=== PATIENT | female | born 1980 | race Caucasian/White ===

== ENCOUNTER 2018-04-26 05:26 | Inpatient (IN) | payer OTHER ==
[2018-04-26] MEDS ORDERED: CEFAZOLIN 2 GM/50 ML (PMX) 50 ML IVPB ×2 (05:45→06:00)
[2018-04-26] MEDS ORDERED: OXYTOCIN 30 UNITS/LR 500 ML IV ×2 (06:00→11:00)
[2018-04-26] MEDS ORDERED: MISOPROSTOL 200 MCG TAB PR ×2 (06:00→11:00)
[2018-04-26] MEDS ORDERED: CARBOPROST 250 MCG INJ IM ×2 (06:00→11:00)
[2018-04-26] MEDS: LACTATED RINGER'S 1,000 ML IV ×2 (06:00→06:57)
[2018-04-26] MEDS ORDERED: METHYLERGONOVINE 0.2 MG INJ IM ×2 (06:00→11:00)
[2018-04-26 06:16] LABS: ADD MAN DIFF? NO
[2018-04-26 06:21] LABS: BASOPHILS % 0.2 % (0.0-2.0); EOSINOPHILS # 0.2 10^3/ul (0.0-0.5); EOSINOPHILS % 1.2 % (0.0-7.0); HEMATOCRIT 39.3 % (37.0-47.0); HEMOGLOBIN 13.3 g/dl (12.0-16.0); LYMPHOCYTES # 2.7 10^3/ul (0.8-2.9); LYMPHOCYTES % 21.3 % (15.0-51.0); MEAN CORPUSCULAR HEMOGLOBIN 29.6 pg (29.0-33.0); MEAN CORPUSCULAR HGB CONC 33.8 g/dl (32.0-37.0); MEAN CORPUSCULAR VOLUME 87.3 fl (82.0-101.0); MEAN PLATELET VOLUME 10.1 fl (7.4-10.4); MONOCYTE # 0.6 10^3/ul (0.3-0.9); MONOCYTES % 4.4 % (0.0-11.0); NEUTROPHIL # 9.3 10^3/ul (1.6-7.5); NEUTROPHILS % 72.4 % (39.0-77.0); PLATELET COUNT 315 10^3/UL (140-415); RED CELL DISTRIBUTION WIDTH 14.6 % (11.5-14.5)
[2018-04-26 06:21] LABS: WHITE BLOOD COUNT 12.9 10^3/ul (4.8-10.8)
[2018-04-26 06:39] LABS: INR 0.94; PROTIME 12.7 Sec (11.9-14.9)
[2018-04-26 06:40] LABS: PARTIAL THROMBOPLASTIN TIME 25.7 Sec (23.0-35.0)
[2018-04-26] MEDS ORDERED: OXYTOCIN 30 UNITS/LR 500 ML BAG IV (07:00)
[2018-04-26] MEDS ORDERED: EPHEDrine SULFATE 50 MG/5 ML SYG (07:00)
[2018-04-26 07:09] LABS: HEPATITIS B SURFACE ANTIGEN NEGATIVE (NEGATIVE)
[2018-04-26] MEDS ORDERED: CITRIC ACID/NA CITRATE 30 ML CUP (08:22)
[2018-04-26] MEDS: ONDANSETRON 4 MG INJ IV (08:25)
[2018-04-26] MEDS: CITRIC ACID/NA CITRATE 30 ML CUP PO (08:25)
[2018-04-26] MEDS ORDERED: PHENYLephrine (100 MCG/ML) 10ML SYG ×3 (08:35→09:32)
[2018-04-26] MEDS ORDERED: morphine SULFATE/PF (10 MG/10 ML) INJ (08:35)
[2018-04-26] MEDS ORDERED: OXYTOCIN 10 UNIT INJ (08:35)
[2018-04-26] MEDS ORDERED: BUPIVACAINE 0.75%/DEXT (SPINAL) 2 ML INJ (08:38)
[2018-04-26] MEDS ORDERED: METOCLOPRAMIDE 10 MG INJ (09:21)
[2018-04-26] MEDS ORDERED: DEXAMETHASONE 4 MG/ML 1 ML INJ (09:22)
[2018-04-26] MEDS ORDERED: KETOROLAC 30 MG INJ (09:22)
[2018-04-26] MEDS ORDERED: METOCLOPRAMIDE 10 MG INJ IV (09:30)
[2018-04-26] MEDS ORDERED: ALBUMIN HUMAN 5% 250 ML IV (09:30)
[2018-04-26] MEDS ORDERED: morphine 2 MG INJ IV ×2 (09:30)
[2018-04-26] MEDS ORDERED: ACETAMINOPHEN 500 MG TAB PO (09:30)
[2018-04-26] MEDS ORDERED: MEPERIDINE 25 MG INJ IV (09:30)
[2018-04-26] MEDS ORDERED: NALBUPHINE HCL (10 MG/1 ML) INJ IV (09:30)
[2018-04-26] MEDS ORDERED: NALOXONE (0.4 MG/ML) INJ IV (09:30)
[2018-04-26] MEDS ORDERED: HYDROCODONE/APAP (5/325) TAB PO (09:30)
[2018-04-26] MEDS ORDERED: FENTAnyl 50 MCG/ML VIAL IV ×2 (09:30)
[2018-04-26] MEDS ORDERED: ONDANSETRON 4 MG INJ IV ×2 (09:30)
[2018-04-26] MEDS ORDERED: HYDROmorphONE 1 MG/5 ML IV SYRINGE IV ×2 (09:30)
[2018-04-26] MEDS ORDERED: LABETALOL HCL 20MG INJ IV (09:30)
[2018-04-26] MEDS ORDERED: DIPHENHYDRAMINE 50 MG INJ IV ×2 (09:30)
[2018-04-26] MEDS ORDERED: EPHEDrine SULFATE 50 MG/5 ML SYG IV (09:30)
[2018-04-26] MEDS ORDERED: HYDROmorphONE 0.5 MG/0.5 ML SYG IV (09:30)
[2018-04-26] MEDS ORDERED: MAGNESIUM HYDROXIDE 30ML CUP PO (11:00)
[2018-04-26] MEDS ORDERED: METHYLERGONOVINE 0.2 MG TAB PO (11:00)
[2018-04-26] MEDS ORDERED: LANOLIN HPA 1 PKT TOP (11:00)
[2018-04-26] MEDS: OXYTOCIN 30 UNITS/LR 500 ML IV ×2 (11:31→14:02)
[2018-04-26] MEDS: KETOROLAC 30 MG INJ IV (12:27)
[2018-04-26] MEDS: IBUPROFEN 800 MG TAB PO ×2 (14:00→22:00)
[2018-04-26 15:30] LABS: RAPID PLASMA REAGIN NONREACTIVE (NR)
[2018-04-26] MEDS: ENOXAPARIN 40 MG/0.4 ML SYG SC (18:16)
[2018-04-26] MEDS: DEXTROSE 5%-LR 1,000 ML IV ×2 (19:24→22:44)
[2018-04-26] MEDS: SENNA/DOCUSATE NA (8.6MG/50MG) TAB PO (21:37)
[2018-04-26] MEDS: HYDROmorphONE 0.5 MG/0.5 ML SYG IV (22:44)
[2018-04-27] MEDS: IBUPROFEN 800 MG TAB PO ×3 (06:00→21:57)
[2018-04-27] MEDS: DEXTROSE 5%-LR 1,000 ML IV ×3 (06:40→18:35)
[2018-04-27 06:45] LABS: ADD MAN DIFF? NO
[2018-04-27 06:50] LABS: BASOPHILS % 0.1 % (0.0-2.0); EOSINOPHILS # 0.1 10^3/ul (0.0-0.5); EOSINOPHILS % 0.8 % (0.0-7.0); HEMATOCRIT 33.5 % (37.0-47.0); LYMPHOCYTES % 22.9 % (15.0-51.0); MEAN CORPUSCULAR HEMOGLOBIN 29.3 pg (29.0-33.0); MEAN CORPUSCULAR HGB CONC 32.8 g/dl (32.0-37.0); MEAN CORPUSCULAR VOLUME 89.3 fl (82.0-101.0); MEAN PLATELET VOLUME 9.7 fl (7.4-10.4); MONOCYTE # 0.7 10^3/ul (0.3-0.9); MONOCYTES % 5.6 % (0.0-11.0); NEUTROPHIL # 9.1 10^3/ul (1.6-7.5); NEUTROPHILS % 70.1 % (39.0-77.0); PLATELET COUNT 262 10^3/UL (140-415); RED BLOOD COUNT 3.75 10^6/ul (4.20-5.40); RED CELL DISTRIBUTION WIDTH 14.2 % (11.5-14.5)
[2018-04-27] MEDS: SENNA/DOCUSATE NA (8.6MG/50MG) TAB PO ×2 (09:05→21:56)
[2018-04-27] MEDS: HYDROCODONE/APAP (5/325) TAB NGT ×2 (09:24→17:18)
[2018-04-27] MEDS: DIPHTH/TET/ACEL PERTUSS (ADULT) 0.5 ML VIAL IM* (11:00)
[2018-04-27] MEDS ORDERED: HYDROCODONE/APAP (5/325) TAB NGT (11:00)
[2018-04-27] MEDS ORDERED: HYDROCODONE/APAP (5/325) TAB GTB (14:00)
[2018-04-28] MEDS: DEXTROSE 5%-LR 1,000 ML IV ×3 (02:35→17:28)
[2018-04-28] MEDS: IBUPROFEN 800 MG TAB PO ×3 (06:07→22:04)
[2018-04-28] MEDS: SENNA/DOCUSATE NA (8.6MG/50MG) TAB PO ×2 (08:46→20:57)
[2018-04-28] MEDS: HYDROCODONE/APAP (5/325) TAB NGT ×2 (08:48→20:57)
[2018-04-29] MEDS: DEXTROSE 5%-LR 1,000 ML IV (02:35)
[2018-04-29] MEDS: IBUPROFEN 800 MG TAB PO (05:33)
[2018-04-29] MEDS: MEASLES,MUMPS,RUBELLA VACCINE INJ SC* (07:27)
[2018-04-29] MEDS: SENNA/DOCUSATE NA (8.6MG/50MG) TAB PO (08:42)
[2018-04-29] MEDS ORDERED: DIPHTH/TET/ACEL PERTUSS (ADULT) 0.5 ML VIAL IM* (09:00)
== END 2018-04-29 13:42 | disposition home or self-care (01) | DRG 785 ==
LOC: L-D 05:26 → PP1 13:57
PROVIDERS: Obstetrics & Gynecology
PROC: 10D00Z1 Extraction of Products of Conception, Low, Open Approach (ICD-10-PCS; principal; 2018-04-26 07:30)
PROC: 0UB70ZZ Excision of Bilateral Fallopian Tubes, Open Approach (ICD-10-PCS; 2018-04-26 07:30)
DX: O34.219 Maternal care for unspecified type scar from previous cesarean delivery (principal); O32.1XX0 Maternal care for breech presentation, not applicable or unspecified; Z3A.39 39 weeks gestation of pregnancy; Z37.0 Single live birth; Z30.2 Encounter for sterilization
CPT/HCPCS: 85025; 85610; 85730; 86592; 86850; 86900; 86901; 87340; 88302; 99464